=== PATIENT | male | born 1955 | race Caucasian/White ===

== ENCOUNTER 2022-11-04 09:17 | Outpatient (RCR) | payer MEDICARE, SELFPAY ==
[2022-11-04] MEDS: Normal Saline Flush 10 ML SYR IVP (11:34)
[2022-11-04 11:37] LABS: Abs Immature Grans 0.02 10^3/uL (0.0-0.06); Absolute Basophil Count 0.04 10^3/uL (0.0-0.2); Absolute Eosinophil Count 0.06 10^3/uL (0.0-0.7); Absolute Lymphocyte Count 0.88 10^3/uL (1.2-3.4); Absolute Monocyte Count 0.43 10^3/uL (0.1-0.8); Absolute Neutrophil Count 4.32 10^3/uL (1.2-6.7); Basophils % 0.7; HGB 13.7 g/dL (13.5-17.5); Immature Grans % 0.3; Lymphocytes % 15.3; MCH 28.4 pg (27.0-33.0); MCHC 33.4 % (32.0-36.0); MCV 85 fL (80-95); MPV 10.3 fL (8.0-11.0); Monocytes % 7.5; Neutrophils % 75.2; Platelet Count 173 10^3/uL (130-400); RBC 4.82 10^6/uL (4.36-5.78); RDW 12.6 % (11.8-14.1); RDW-SD 38.8 fL; WBC 5.75 10^3/uL (4.4-10.8)
[2022-11-04 11:57] LABS: ALT 81 U/L (16-63); AST 75 U/L (15-37); Albumin 3.9 g/dL (3.4-5.0); Alkaline Phosphatase 130 U/L (46-116); Anion Gap 8.4 mmol/L (3-11); BUN 16 mg/dL (7-18); Bilirubin, Total 0.6 mg/dL (0.2-1.0); CO2 27.6 mmol/L (21.0-32.0); CREATININE 0.8 mg/dL (0.70-1.30); Calcium 9.5 mg/dL (8.5-10.1); Chloride 100 mmol/L (98-107); Estimated GFR 98.21 (mL/min/1.73m2); Glucose 104 mg/dL (74-106); Sodium 136 mmol/L (136-145); Total Protein 7.2 g/dL (6.4-8.2)
[2022-11-05 09:41] LABS: CA 19-9 147 U/mL (<35)
== END 2022-11-25 23:59 | disposition home or self-care (01) ==
LOC: INF 09:17
PROVIDERS: PCP Registered Nurse Infection Control; Visit Provider Internal Medicine Hematology & Oncology
DX: C25.0 Malignant neoplasm of head of pancreas (principal); Z45.2 Encounter for adjustment and management of vascular access device
CPT/HCPCS: 36591; 80053; 85025; 86301

== ENCOUNTER 2022-11-04 13:06 | Emergency (ER) | payer MEDICARE, SELFPAY ==
[2022-11-04 13:10] VITALS: BP 159/96; PULSE 71; RESP 18; O2SAT 99
--- NOTE | 2022-11-04 13:15 | RT.EKG_ITS ---
APPROVED REPORT Exam: Resting ECG Reason for Exam: chest pain Patient Location: E HR:67 bpm ECG Measurements Heart Rate 67 AXIS DC 145 P 27 QRSd 89 QRS 12 QT 401 T 34 QTc 423 Conclusion Sinus rhythm. No acute st changes
[2022-11-04 14:30] VITALS: RESP 18
--- NOTE | 2022-11-04 15:00 | DI.CT_ITS ---
Exam(s) CT ABDOMEN PELVIS W EXAM: CT ABDOMEN PELVIS W CLINICAL HISTORY: Epigastric pain. TECHNIQUE: Imaging Protocol: Axial computed tomography images with coronal and sagittal reformatted images were created and reviewed CONTRAST MATERIAL: Intravenous: Omnipaque-350 100cc Oral: None COMPARISON: No exams were available for comparison FINDINGS: VISUALIZED LUNG BASES: No nodules nor pleural effusions evident. ABDOMEN: There is no ascites. LIVER: There are no focal hepatic lesions evident. No dilated intrahepatic ducts. GALLBLADDER/BILIARY: There is a self expanding-type stent in the CBD.. Mild pneumobilia noted as wel l as some air in the gallbladder lumen. Also some air in the CBD above the level of the superior asp ect of the stent. The stent traverses the pancreatic head where there is a surrounding hypodense are a which is either related to malignancy or inflammatory process. Stent diameter is 9-10 millimeters with no significant waist evident. The inferior aspect of the stent is at the duodenal wall level. PANCREAS: Hypodense mass area in the pancreatic head as described above either malignancy or edema fr om pancreatitis or a combination there of. Pancreatic duct diameter is upper normal. No other pancr eatic masses evident. SPLEEN: Spleen is not enlarged. No obvious intrasplenic lesions. Splenic and portal veins are paten t. ADRENALS: There are no significant adrenal masses. KIDNEYS:There are multiple cysts throughout both kidneys consistent with adult polycystic kidney dise ase. The largest cyst is in the superior aspect of the left kidney and measures 10 by 9 cm. Multipl e other cysts are noted in both kidneys. In the superior aspect of the right kidney there is a 3.8 x 2.8 cm finding which is either hemorrhagic cyst or solid lesion.. No calculi. No hydronephrosis on either side. No cysts in the liver and pancreas nor in the spleen. ABDOMINAL AORTA: Abdominal aorta is not enlarged. LYMPH NODES:There is no retroperitoneal nor paraaortic adenopathy. ABDOMINAL WALL: No evidence of significant anterior abdominal wall nor inguinal hernia. GI: There is no evidence of bowel obstruction, free air, nor abscess. PELVIS: GI: No evidence of appendicitis.No evidence of sigmoid diverticulitis. LYMPH NODES: There is no intrapelvic nor inguinal adenopathy. REPRODUCTIVE: Prostate size normal. URINARY BLADDER: Distended. No masses nor radiopaque calculi noted. Pelvic ureters are not dilated. OSSEOUS: No fractures and no significant osseous lesions. IMPRESSION: 1. There is a self expanding-type CBD stent in place. Mild pneumobilia evident. Minimal prominence of intrahepatic ducts. No gross dilatation of biliary tree, both intra and extrahepatic and no evide nce of metastatic lesions in the liver. 2. Pancreatic head hypodense mass which is probably malignancy-adenocarcinoma. Pancreatic duct is no t dilated. 3. Adult polycystic kidney disease with multiple cysts in both kidneys ranging up to 10 centimeters s ize (left side). In addition, there is what is either a hemorrhagic cyst or solid nodule in the supe rior pole the right kidney measuring 3.8 x 2.8 x 3.1 cm. This is wedged between 2 more simple appear ing cysts. 4. Urinary bladder is moderately distended. Prostate size is normal. Discussed by phone with ER provider. RADIATION DOSE DELIVERED: 721.1mGy.cm Total DLP DATA REPOSITORY: All CT scans at this facility are submitted to the National Radiology Data Registry (NRDR) Dose Index Registry (DIR) with the [employer] (A[employer]). RADIATION OPTIMIZATION: All CT scans at this facility use at least one of these dose optimization te chniques: automated exposure control; mA and/or kV adjustment per patient size (includes targeted exa ms where dose is matched to clinical indication); or iterative reconstruction.
[2022-11-04 15:28] LABS: Abs Immature Grans 0.02 10^3/uL (0.0-0.06); Absolute Basophil Count 0.03 10^3/uL (0.0-0.2); Absolute Eosinophil Count 0.04 10^3/uL (0.0-0.7); Absolute Lymphocyte Count 0.36 10^3/uL (1.2-3.4); Absolute Monocyte Count 0.24 10^3/uL (0.1-0.8); Absolute Neutrophil Count 7.55 10^3/uL (1.2-6.7); Basophils % 0.4; Eosinophils % 0.5; HCT 39.5 % (40.0-50.0); HGB 13.3 g/dL (13.5-17.5); Immature Grans % 0.2; Lymphocytes % 4.4; MCH 28.7 pg (27.0-33.0); MCHC 33.7 % (32.0-36.0); MCV 85 fL (80-95); Monocytes % 2.9; Neutrophils % 91.6; Platelet Count 175 10^3/uL (130-400); RBC 4.63 10^6/uL (4.36-5.78); RDW 12.6 % (11.8-14.1); RDW-SD 38.5 fL; WBC 8.24 10^3/uL (4.4-10.8)
--- NOTE | 2022-11-04 15:44 | ED.GENADUL_ITS ---
Discharge Plan Disposition Patient Disposition: Home Condition: Stable Discharge Details Clinical Impression: Abdominal pain Primary Care Provider: Joseline Perez ED Provider: Sunil Orantes Home Meds and New Rx's Prescriptions: No Action No Known Home Meds Discharge Data Discharge Date/Time-TO BE ENTERED AT DEPARTURE: 11/04/22 18:25 Medical Decision Making <Franck Nova NP - Last Filed: 11/08/22 08:33> Patient presenting to the emergency department for chief complaint of epigastric pain. Patient was going to the oncology clinic today for first round of chemo for pancreatic cancer. This morning he was having some mild epigastric pain that seem to worsen before his appointment today. Patient does state this is similar to when he had a upper EGD performed and had some discomfort. He stated that the cancer center gave him some medication and by the time he had got to the emergency department symptoms had started to improve. They were concerned for possible cardiac cause. Patient states no cardiac or respiratory history. Physical exam does show mild epigastric tenderness otherwise is unremarkable. Previous records were reviewed and I am slightly concerned due to area of pain being same area where patient had pancreatic ductal stents placed due to his carcinoma. Given this I do feel the patient requires labs and CT imaging to make sure no worsening or ductal blockages noted. Patient states he is comfortable at this point denies any need for pain medication or interventions at this time. Please see physician interpretation for full interpretation of EKG but upon my review patient is in sinus rhythm with no acute ischemic findings to suggest STEMI or ACS. Review of labs shows some subtle drop in hemoglobin to 13.3, neutrophils elevated to 7.55 and lymphocytes 10.36. This is slightly elevated from labs that patient had done earlier today. CMP reviewed nonworrisome glucose of 130 but of concern is AST of 255, ALT 217 and alk phos of 156 with a lipase greater than 375. All of these are significantly elevated from earlier labs done within hours of emergency department labs. Initial troponin is negative which I have low suspicion for cardiac findings and I do not feel delta troponin is needed. <MESHA Avila - Last Filed: 11/04/22 19:29> Patient presenting to the emergency department for chief complaint of epigastric pain. Patient was going to the oncology clinic today for first round of chemo for pancreatic cancer. This morning he was having some mild epigastric pain that seem to worsen before his appointment today. Patient does state this is similar to when he had a upper EGD performed and had some discomfort. He stated that the cancer center gave him some medication and by the time he had got to the emergency department symptoms had started to improve. They were concerned for possible cardiac cause. Patient states no cardiac or respiratory history. Physical exam does show mild epigastric tenderness otherwise is unremarkable. Previous records were reviewed and I am slightly concerned due to area of pain being same area where patient had pancreatic ductal stents placed due to his carcinoma. Given this I do feel the patient requires labs and CT imaging to make sure no worsening or ductal blockages noted. Patient states he is comfortable at this point denies any need for pain medication or interventions at this time. Please see physician interpretation for full interpretation of EKG but upon my review patient is in sinus rhythm with no acute ischemic findings to suggest STEMI or ACS. Review of labs shows some subtle drop in hemoglobin to 13.3, neutrophils elevated to 7.55 and lymphocytes 10.36. This is slightly elevated from labs that patient had done earlier today. CMP reviewed nonworrisome glucose of 130 but of concern is AST of 255, ALT 217 and alk phos of 156 with a lipase greater than 375. All of these are significantly elevated from earlier labs done within hours of emergency department labs. Initial troponin is negative which I have low suspicion for cardiac findings and I do not feel delta troponin is needed. 1530: Sunil Orantes PA-C I assumed care of this 67-year-old gentleman from my colleague ALEKSEY Nova, please see his initial HPI and examination. At time of signout awaiting CT abdomen and pelvis. Upon my evaluation patient is resting comfortably. Reports that his pain was in the epigastric region and denies true chest pain to me. Patient states that from time to time he has pain like this sometimes after eating, sometimes specifically with cold food. He reports that he is currently asymptomatic. Awaiting his CT. CT imaging as below. Discussed CT findings with patient. He remains asymptomatic. Given his new diagnosis of pancreatic cancer, stent placement, complicated past medical history, elevated AST, ALT, alk phosphatase, lipase, plan to consult with oncology. Images were pushed to [facility] and a formal consultation was requested at 1719. Patient remains asymptomatic. A second consultation was requested at 1823. P clair's significant other returned, I explained to them that we were waiting for the oncology team to call back, they no longer want to wait, he remains asymptomatic, and is requesting discharge. They will call their oncology team tomorrow. They did not care to await discharge instructions and were verbally discharged. I received a call from Dr. Tom, oncology, from [facility] at approximately 1827. Patient had already left the ER. We discussed his overall presentation and evaluation here in the ER. She certainly believes that his LFTs warrant close follow-up. He is scheduled for a telemedicine on the but she plans to have the office call him tomorrow to set up additional blood draw and sooner appointment. She did state that he did begin taking Aloxi and in 1% this can cause transaminitis. Standard discharge and return precautions were provided. Patient understands, is agreeable to this plan, and has no additional questions or concerns upon discharge. This documentation was generated using [employer] system, please disregard any oddities of phrase or misspellings. Medical Records Medical records reviewed: Yes I reviewed the patient's medical records. Imaging Data Radiologic Study: Attestation: I personally reviewed and interpreted this imaging study as follows: Imaging: CT Scan Radiologist's impression: This report is currently processing and HAS NOT BEEN OFFICIALLY SIGNED BY THE PHYSICIAN - ESTIMATED TIME OF APPROVAL IS 11/04/2022 17:20. Exam(s) CT ABDOMEN PELVIS W EXAM: CT ABDOMEN PELVIS W CLINICAL HISTORY: Epigastric pain. TECHNIQUE: Imaging Protocol: Axial computed tomography images with coronal and sagittal reformatted images were created and reviewed CONTRAST MATERIAL: Intravenous: Omnipaque-350 100cc Oral: None COMPARISON: No exams were available for comparison FINDINGS: VISUALIZED LUNG BASES: No nodules nor pleural effusions evident. ABDOMEN: There is no ascites. LIVER: There are no focal hepatic lesions evident. No dilated intrahepatic ducts. GALLBLADDER/BILIARY: There is a self expanding-type stent in the CBD.. Mild pneumobilia noted as well as some air in the gallbladder lumen. Also some air in the CBD above the level of the superior aspect of the stent. The stent traverses the pancreatic head where there is a surrounding hypodense area which is either related to malignancy or inflammatory process. Stent diameter is 9-10 millimeters with no significant waist evident. The inferior aspect of the stent is at the duodenal wall level. PANCREAS: Hypodense mass area in the pancreatic head as described above either malignancy or edema from pancreatitis or a combination there of. Pancreatic duct diameter is upper normal. No other pancreatic masses evident. SPLEEN: Spleen is not enlarged. No obvious intrasplenic lesions. Splenic and portal veins are patent. ADRENALS: There are no significant adrenal masses. KIDNEYS:There are multiple cysts throughout both kidneys consistent with adult polycystic kidney disease. The largest cyst is in the superior aspect of the left kidney and measures 10 by 9 cm. Multiple other cysts are noted in both kidneys. In the superior aspect of the right kidney there is a 3.8 x 2.8 cm finding which is either hemorrhagic cyst or solid lesion.. No calculi. No hydronephrosis on either side. No cysts in the liver and pancreas nor in the spleen. ABDOMINAL AORTA: Abdominal aorta is not enlarged. LYMPH NODES:There is no retroperitoneal nor paraaortic adenopathy. ABDOMINAL WALL: No evidence of significant anterior abdominal wall nor inguinal hernia. GI: There is no evidence of bowel obstruction, free air, nor abscess. PELVIS: GI: No evidence of appendicitis.No evidence of sigmoid diverticulitis. LYMPH NODES: There is no intrapelvic nor inguinal adenopathy. REPRODUCTIVE: Prostate size normal. URINARY BLADDER: Distended. No masses nor radiopaque calculi noted. Pelvic ureters are not dilated. OSSEOUS: No fractures and no significant osseous lesions. IMPRESSION: 1. There is a self expanding-type CBD stent in place. Mild pneumobilia evident. Minimal prominence of intrahepatic ducts. No gross dilatation of biliary tree, both intra and extrahepatic and no evidence of metastatic lesions in the liver. 2. Pancreatic head hypodense mass which is probably malignancy-adenocarcinoma. Pancreatic duct is not dilated. 3. Adult polycystic kidney disease with multiple cysts in both kidneys ranging up to 10 centimeters size (left side). In addition, there is what is either a hemorrhagic cyst or solid nodule in the superior pole the right kidney measuring 3.8 x 2.8 x 3.1 cm. This is wedged between 2 more simple appearing cysts. 4. Urinary bladder is moderately distended. Prostate size is normal. Lab Data Lab results reviewed: Yes I reviewed the patient's lab results. Labs: Laboratory Tests Range/Units 11/04/22 11/04/22 15:25 15:25 WBC (4.4-10.8) 10^3/uL 8.24 RBC (4.36-5.78) 10^6/uL 4.63 Hgb (13.5-17.5) g/dL 13.3 L Hct (40.0-50.0) % 39.5 L MCV (80-95) fL 85 MCH (27.0-33.0) pg 28.7 MCHC (32.0-36.0) % 33.7 RDW (11.8-14.1) % 12.6 Plt Count (130-400) 10^3/uL 175 MPV (8.0-11.0) fL 10.0 Immature Gran % 0.2 Neutrophils % 91.6 Lymphocytes % 4.4 Monocytes % 2.9 Eosinophils % 0.5 Basophils % 0.4 Nucleated RBC % (0.0-0.3) % 0.0 Absolute Neutrophils (1.2-6.7) 10^3/uL 7.55 H Absolute Lymphocytes (1.2-3.4) 10^3/uL 0.36 L Absolute Monocytes (0.1-0.8) 10^3/uL 0.24 Absolute Eosinophils (0.0-0.7) 10^3/uL 0.04 Absolute Basophils (0.0-0.2) 10^3/uL 0.03 Sodium (136-145) mmol/L 136 Potassium (3.5-5.1) mmol/L 4.3 Chloride (98-107) mmol/L 103 Carbon Dioxide (21.0-32.0) mmol/L 25.6 Anion Gap (3-11) mmol/L 7.4 BUN (7-18) mg/dL 14 Creatinine (0.70-1.30) mg/dL 0.8 Est GFR (CKD-EPI 2020) (mL/min/1.73m2) 98.21 Glucose (74-106) mg/dL 130 H Calcium (8.5-10.1) mg/dL 9.2 Magnesium (1.8-2.4) mg/dL 2.1 Total Bilirubin (0.2-1.0) mg/dL 0.6 AST (15-37) U/L 255 H ALT (16-63) U/L 217 H Alkaline Phosphatase (46-116) U/L 156 H Troponin I (<or=60) ng/L < 50 Total Protein (6.4-8.2) g/dL 6.9 Albumin (3.4-5.0) g/dL 3.7 Lipase (16-77) U/L > 375 H HPI <Franck Nova NP - Last Filed: 11/08/22 08:33> General Mode of arrival: ambulatory . Date/Time Provider Initiated Documentation: 11/04/22 13:24 . Limitations to Documentation: no limitations . Information obtained by: patient, RN notes reviewed and old records reviewed . History of Present Illness 67 year old M presents to the emergency department with the chief complaint of Epigastric discomfort, described as moderate and severe, Quality is described as aching and sharp, and is localized to the abdomen. Patient reports no radiation. Patient started experiencing this hour(s) (6) and it has been intermittent and now resolved. Medication improves symptom(s), (Given at the oncology clinic) Eating worsens symptoms . Patient notes no other symptoms.. Related Data Home Medications Medication Instructions Recorded Confirmed Unknown [No Known Home Meds] 11/04/22 11/04/22 Allergies Allergy/AdvReac Type Severity Reaction Status Date / Time No Known Allergies Allergy Unverified 11/04/22 13:13 General Stated Complaint: Chest Pain MOMO: 2 Review of Systems <Franck Nova NP - Last Filed: 11/08/22 08:33> Constitutional Constitutional: Denies chills, Denies fever(s), Denies malaise and Denies poor appetite Cardiovascular Cardiovascular: Denies chest pain and Denies dyspnea Respiratory Respiratory: Denies cough and Denies dyspnea Gastrointestinal Gastrointestinal: Reports as per HPI, Reports abdominal pain, Reports belching, Denies constipation, Reports heartburn, Reports nausea and Denies vomiting Genitourinary Genitourinary: Denies flank pain Musculoskeletal Musculoskeletal: Denies back pain Integumentary/Breasts Skin/Breast: Denies rash PFSH <Franck Nova NP - Last Filed: 11/08/22 08:33> All Active Problems (Updated 11/04/22 @ 19:29 by MESHA Avila) Abdominal pain (Acute) Pancreatic cancer (Acute) Social History Smoking/Tobacco Use Status: Never Smoking risk assessment performed?: Yes Drug use: Daily Substance use type: marijuana Do you feel safe at home: Yes Do you feel safe in your relationship?: Yes Exam <Franck Nova NP - Last Filed: 11/08/22 08:33> Const General: cooperative, no acute distress and not ill appearing Nutritional Appearance: average body habitus Orientation: alert, awake and oriented x3 Limitations: mental status not altered Neck Neck: normal visual inspection, full ROM, trachea midline, supple and no anterior neck swelling Carotids: normal carotid upstroke and no bruits Chest Chest: normal inspection of the chest Resp Effort & Inspection: normal respiratory effort, able to speak in complete sentences and no respiratory distress Auscultation: clear to auscultation bilaterally Cardio Jugular venous pressure: no JVD Palpation: normal PMI Rate: regular rate Rhythm: regular rhythm Heart Sounds: S1 normal and S2 normal Bruits: no abdominal aortic bruits and no carotid bruits Pulses: radial pulses present bilaterally 2+ GI Inspection: normal to inspection Palpation: soft, no aortic enlargement, no pulsatile masses and tender (Mild) in the epigastrum Auscultation: normal bowel sounds Skin General skin exam: no rashes or lesions noted Neuro General: patient alert, patient awake, patient oriented x3, moves all extremities and no focal motor deficits Sensory Exam: no sensory deficits noted Course <Franck Nova NP - Last Filed: 11/08/22 08:33> Vital Signs Vital signs: Vital Signs Pulse 71 11/04/22 13:10 Respiratory Rate 18 11/04/22 13:10 Blood Pressure 159/96 H 11/04/22 13:10 Pulse Oximetry 99 11/04/22 13:10 Pulse 71 11/04/22 13:10 Respiratory Rate 18 11/04/22 14:30 Respiratory Effort Non-Labored 11/04/22 14:30 Respiratory Depth Normal 11/04/22 14:30 Respiratory Pattern Normal 11/04/22 14:30 Blood Pressure 159/96 H 11/04/22 13:10 Blood Pressure Position Sitting 11/04/22 13:10 Pulse Oximetry 99 11/04/22 13:10 Oxygen Delivery Method Room Air 11/04/22 13:10 Oxygen Flow Rate 0 11/04/22 13:10 Pain Level 1 11/04/22 13:10 Lab/Test Results Lab/Test Results: Laboratory Tests Range/Units 11/04/22 15:25 WBC (4.4-10.8) 10^3/uL 8.24 RBC (4.36-5.78) 10^6/uL 4.63 Hgb (13.5-17.5) g/dL 13.3 L Hct (40.0-50.0) % 39.5 L MCV (80-95) fL 85 MCH (27.0-33.0) pg 28.7 MCHC (32.0-36.0) % 33.7 RDW (11.8-14.1) % 12.6 Plt Count (130-400) 10^3/uL 175 MPV (8.0-11.0) fL 10.0 Immature Gran % 0.2 Neutrophils % 91.6 Lymphocytes % 4.4 Monocytes % 2.9 Eosinophils % 0.5 Basophils % 0.4 Nucleated RBC % (0.0-0.3) % 0.0 Absolute Neutrophils (1.2-6.7) 10^3/uL 7.55 H Absolute Lymphocytes (1.2-3.4) 10^3/uL 0.36 L Absolute Monocytes (0.1-0.8) 10^3/uL 0.24 Absolute Eosinophils (0.0-0.7) 10^3/uL 0.04 Absolute Basophils (0.0-0.2) 10^3/uL 0.03 Sign Out <Franck Nova NP - Last Filed: 11/08/22 08:33> Sign Out Data: Sign Out Comment: Patient signed out pending CT imaging and disposition based upon findings. Last updated by Franck Nova NP at 11/04/22 16:00
[2022-11-04 15:47] LABS: ALT 217 U/L (16-63); AST 255 U/L (15-37); Albumin 3.7 g/dL (3.4-5.0); Alkaline Phosphatase 156 U/L (46-116); Anion Gap 7.4 mmol/L (3-11); BUN 14 mg/dL (7-18); Bilirubin, Total 0.6 mg/dL (0.2-1.0); CO2 25.6 mmol/L (21.0-32.0); CREATININE 0.8 mg/dL (0.70-1.30); Calcium 9.2 mg/dL (8.5-10.1); Chloride 103 mmol/L (98-107); Estimated GFR 98.21 (mL/min/1.73m2); Glucose 130 mg/dL (74-106); Magnesium 2.1 mg/dL (1.8-2.4); Potassium 4.3 mmol/L (3.5-5.1); Sodium 136 mmol/L (136-145); Total Protein 6.9 g/dL (6.4-8.2); Troponin I < 50 ng/L (<or=60)
[2022-11-04 15:52] LABS: Lipase > 375 U/L (16-77)
[2022-11-04] MEDS: Omnipaque 350 MG/ML 100 ML BTL IJ (16:22)
[2022-11-04] MEDS: Normal Saline - Diluent 50 ML VIAL IV (16:26)
[2022-11-04] MEDS: Heparin 500 UNITS/5 ML SYRINGE (18:23)
== END 2022-11-04 18:25 | disposition home or self-care (01) ==
PROVIDERS: Nurse Practitioner Family; Emergency Provider Physician Assistant; PCP Registered Nurse Infection Control
DX: R10.13 Epigastric pain (principal); D72.829 Elevated white blood cell count, unspecified; C25.9 Malignant neoplasm of pancreas, unspecified
CPT/HCPCS: 36591; 80053; 83690; 93005; 99285; 74177; 83735; 84484; 85025; 86301; 93010; 99284; J3490

== ENCOUNTER 2023-01-16 02:15 | Outpatient (CLI) | payer MEDICARE, SELFPAY ==
[2023-01-16 12:47] LABS: Abs Immature Grans 0.01 10^3/uL (0.0-0.06); Absolute Basophil Count 0.03 10^3/uL (0.0-0.2); Absolute Eosinophil Count 0.08 10^3/uL (0.0-0.7); Absolute Lymphocyte Count 0.69 10^3/uL (1.2-3.4); Absolute Monocyte Count 0.36 10^3/uL (0.1-0.8); Absolute Neutrophil Count 2.17 10^3/uL (1.2-6.7); Basophils % 0.9; Eosinophils % 2.4; HCT 34.3 % (40.0-50.0); HGB 11.1 g/dL (13.5-17.5); Immature Grans % 0.3; Lymphocytes % 20.7; MCH 26.9 pg (27.0-33.0); MCHC 32.4 % (32.0-36.0); MCV 83 fL (80-95); MPV 9.7 fL (8.0-11.0); Monocytes % 10.8; Neutrophils % 64.9; Platelet Count 173 10^3/uL (130-400); RBC 4.13 10^6/uL (4.36-5.78); RDW 11.9 % (11.8-14.1); RDW-SD 35.9 fL; WBC 3.34 10^3/uL (4.4-10.8)
[2023-01-16 13:21] LABS: ALT 59 U/L (16-63); AST 25 U/L (15-37); Alkaline Phosphatase 105 U/L (46-116); Anion Gap 9.9 mmol/L (3-11); BUN 16 mg/dL (7-18); Bilirubin, Total 0.4 mg/dL (0.2-1.0); CO2 28.1 mmol/L (21.0-32.0); CREATININE 0.9 mg/dL (0.70-1.30); Calcium 9.3 mg/dL (8.5-10.1); Chloride 100 mmol/L (98-107); Estimated GFR 94.78 (mL/min/1.73m2); Glucose 89 mg/dL (74-106); Potassium 4.3 mmol/L (3.5-5.1); Sodium 138 mmol/L (136-145); Total Protein 7.6 g/dL (6.4-8.2)
[2023-01-19 09:33] LABS: CA 19-9 20 U/mL (<35)
== END 2023-01-16 02:16 | disposition home or self-care (01) ==
LOC: LBO 02:15
PROVIDERS: PCP Registered Nurse Infection Control; Visit Provider Internal Medicine Hematology & Oncology
DX: C25.0 Malignant neoplasm of head of pancreas (principal)
CPT/HCPCS: 36415; 80053; 85025; 86301

== ENCOUNTER 2023-02-13 09:19 | Outpatient (CLI) | payer MEDICARE, SELFPAY ==
[2023-02-13 07:41] LABS: Abs Immature Grans 0.01 10^3/uL (0.0-0.06); Absolute Basophil Count 0.04 10^3/uL (0.0-0.2); Absolute Lymphocyte Count 0.69 10^3/uL (1.2-3.4); Absolute Monocyte Count 0.42 10^3/uL (0.1-0.8); Absolute Neutrophil Count 2.71 10^3/uL (1.2-6.7); Eosinophils % 2.5; HCT 34.9 % (40.0-50.0); Immature Grans % 0.3; Lymphocytes % 17.4; MCH 25.1 pg (27.0-33.0); MCHC 31.5 % (32.0-36.0); MCV 80 fL (80-95); MPV 9.9 fL (8.0-11.0); Monocytes % 10.6; Neutrophils % 68.2; Platelet Count 176 10^3/uL (130-400); RBC 4.38 10^6/uL (4.36-5.78); RDW 12.7 % (11.8-14.1); RDW-SD 36.3 fL; WBC 3.97 10^3/uL (4.4-10.8)
[2023-02-13 07:59] LABS: ALT 32 U/L (16-63); AST 19 U/L (15-37); Albumin 3.9 g/dL (3.4-5.0); Alkaline Phosphatase 112 U/L (46-116); Anion Gap 8.9 mmol/L (3-11); BUN 15 mg/dL (7-18); Bilirubin, Total 0.4 mg/dL (0.2-1.0); CO2 27.1 mmol/L (21.0-32.0); CREATININE 0.8 mg/dL (0.70-1.30); Calcium 9.2 mg/dL (8.5-10.1); Chloride 102 mmol/L (98-107); Estimated GFR 98.21 (mL/min/1.73m2); Glucose 118 mg/dL (74-106); Potassium 4.5 mmol/L (3.5-5.1); Sodium 138 mmol/L (136-145); Total Protein 7.5 g/dL (6.4-8.2)
[2023-02-16 11:41] LABS: CA 19-9 28 U/mL (<35)
== END 2023-02-13 09:20 | disposition home or self-care (01) ==
LOC: LBO 09:19
PROVIDERS: PCP Registered Nurse Infection Control; Visit Provider Internal Medicine Hematology & Oncology
DX: C25.0 Malignant neoplasm of head of pancreas (principal)
CPT/HCPCS: 36415; 80053; 85025; 86301

== ENCOUNTER 2023-02-15 00:51 | Outpatient (RCR) | payer MEDICARE, SELFPAY ==
[2023-02-15 14:19] VITALS: BP 122/72; PULSE 77; RESP 16; TEMP 36.9; O2SAT 99
[2023-02-15] MEDS: Heparin 500 UNITS/5 ML SYRINGE IV (14:20)
[2023-02-15] MEDS: Normal Saline Flush 10 ML SYR IVP (14:20)
== END 2023-02-25 23:59 | disposition home or self-care (01) ==
LOC: INF 00:51
PROVIDERS: PCP Registered Nurse Infection Control; Visit Provider Internal Medicine Hematology & Oncology
DX: Z45.2 Encounter for adjustment and management of vascular access device (principal)
CPT/HCPCS: 96523

== ENCOUNTER 2023-02-27 01:02 | Outpatient (RCR) | payer MEDICARE, SELFPAY ==
[2023-02-26 00:10] VITALS: BP 122/72; PULSE 77; RESP 16; TEMP 36.9
[2023-02-27] MEDS: Normal Saline Flush 10 ML SYR IVP (08:03)
[2023-02-27] MEDS: Heparin 500 UNITS/5 ML SYRINGE IV (08:03)
[2023-02-27 08:12] LABS: Abs Immature Grans 0.01 10^3/uL (0.0-0.06); Absolute Basophil Count 0.04 10^3/uL (0.0-0.2); Absolute Lymphocyte Count 0.56 10^3/uL (1.2-3.4); Absolute Monocyte Count 0.33 10^3/uL (0.1-0.8); Absolute Neutrophil Count 1.41 10^3/uL (1.2-6.7); Basophils % 1.6; Eosinophils % 4.1; HGB 10.1 g/dL (13.5-17.5); Immature Grans % 0.4; Lymphocytes % 22.9; MCH 25.1 pg (27.0-33.0); MCHC 31.6 % (32.0-36.0); MCV 79 fL (80-95); MPV 10.5 fL (8.0-11.0); Monocytes % 13.5; Neutrophils % 57.5; Platelet Count 148 10^3/uL (130-400); RBC 4.03 10^6/uL (4.36-5.78); RDW 13.4 % (11.8-14.1); RDW-SD 37.9 fL; WBC 2.45 10^3/uL (4.4-10.8)
[2023-02-27 08:40] LABS: ALT 28 U/L (16-63); AST 17 U/L (15-37); Albumin 3.9 g/dL (3.4-5.0); Alkaline Phosphatase 99 U/L (46-116); Anion Gap 6.1 mmol/L (3-11); BUN 17 mg/dL (7-18); Bilirubin, Total 0.5 mg/dL (0.2-1.0); CO2 26.9 mmol/L (21.0-32.0); CREATININE 0.9 mg/dL (0.70-1.30); Chloride 102 mmol/L (98-107); Estimated GFR 94.78 (mL/min/1.73m2); Glucose 112 mg/dL (74-106); Sodium 135 mmol/L (136-145); Total Protein 7.1 g/dL (6.4-8.2)
[2023-03-02 11:44] LABS: CA 19-9 27 U/mL (<35)
== END 2023-03-27 23:59 | disposition home or self-care (01) ==
LOC: INF 01:02
PROVIDERS: PCP Registered Nurse Infection Control; Visit Provider Internal Medicine Hematology & Oncology
DX: C25.0 Malignant neoplasm of head of pancreas (principal); Z45.2 Encounter for adjustment and management of vascular access device
CPT/HCPCS: 36591; 80053; 85025; 86301

== ENCOUNTER 2023-03-06 17:14 | Outpatient (CLI) | payer MEDICARE, SELFPAY ==
--- NOTE | 2023-03-06 | DI.US_ITS ---
Exam(s) US UPPER EXTREMITY VENOUS RT EXAM: US UPPER EXTREMITY VENOUS RT CLINICAL HISTORY: RT ARM PAIN, M79.601,RUE AND CHEST PAIN AT SITE OF PRIOR MEDIPORT, ? DVT. TECHNIQUE: Ultrasound examination of the right upper extremity venous system(s) is performed using g rayscale, color-flow, and spectral Doppler analysis. COMPARISON: No exams were available for comparison FINDINGS: The right internal jugular, axillary, subclavian, cephalic, basilic, brachial and median cubital vein s are patent without evidence of thrombosis. IMPRESSION: No DVT. DATA REPOSITORY:
== END 2023-03-06 17:34 ==
LOC: DI 17:14
PROVIDERS: PCP Registered Nurse Infection Control; Visit Provider Internal Medicine Hematology & Oncology
DX: M79.601 Pain in right arm (principal)
CPT/HCPCS: 93971